=== PATIENT | male | born 1945 | race Caucasian/White ===

== ENCOUNTER → 2023-07-20 08:02 | Outpatient (REF) | payer MEDICARE, BC, SELFPAY ==
[2023-07-20 09:42] LABS: % Basophils 0.6 % (0-2); % Eosinophils 2.3 % (0-6); % Immature Granulocytes 0.3 % (0-0.5); % Lymphocytes 22.1 % (20.5-51.1); % Monocytes 9.8 % (1.7-9.3); % Neutrophils 64.9 % (42.2-75.2); Absolute Eosinophils 0.2 10^3/uL (0-0.7); Absolute Lymphocytes 1.6 10^3/uL (1.2-3.4); Absolute Monocytes 0.7 10^3/uL (0.1-0.6); Absolute Neutrophils 4.6 10^3/uL (1.4-6.5); Hematocrit 33.7 % (39.0-52.0); Hemoglobin 11.5 g/dL (13.0-18.0); Mean Corp Hgb Conc. 34.1 g/dL (33.0-37.0); Mean Corpuscular Hgb 32.5 pg (27.0-31.0); Mean Corpuscular Volume 95.2 fL (80.0-94.0); Mean Platelet Volume 10.6 fL (7.4-10.4); Nucleated Red Blood Cells % 0 % (-); Platelet Count 290 10^3/uL (130-400); Red Blood Cell Count 3.54 10^6/uL (4.70-6.10); Red Cell Dist. Width 14.6 % (11.5-14.5); White Blood Cell Count 7.1 10^3/uL (4.8-10.8)
[2023-07-20 10:10] LABS: Microalbumin, Random Urine 1.4 mg/dl (0.6-1.7)
[2023-07-20 10:17] LABS: ALT (SGPT) 16 U/L (0-50); AST (SGOT) 19 U/L (17-59); Albumin 4.1 g/dl (3.5-5.0); Alkaline Phosphatase 108 U/L (38-126); Blood Urea Nitrogen 15 mg/dl (9-20); Calcium 9.7 mg/dl (8.4-10.2); Carbon Dioxide 26 mmol/L (22-30); Chloride 105 mmol/L (98-107); Glucose 104 mg/dl (70-99); HDL Cholesterol 38 mg/dl; LDL Cholesterol, Calculated 90 mg/dl; Potassium 4.2 mmol/L (3.5-5.1); Sodium 137 mmol/L (135-145); Total Bilirubin 0.7 mg/dl (0.2-1.3); Total Cholesterol 149 mg/dl (50-199); Total Protein 6.9 g/dl (6.3-8.2); Triglyceride 106 mg/dl (10-149); Very Low Density Lipoprotein 21 mg/dl (0-30); eGFR > 60.00
[2023-07-20 11:33] LABS: TSH 1.32 uIU/ml (0.47-4.68)
[2023-07-20 11:58] LABS: Glycohemoglobin (HgbA1c) 5.8 % (4.0-5.6)
== END ==
LOC: HWLAB 08:02
PROVIDERS: ATTENDING PHYSICIAN Family Medicine; REFERRING PHYSICIAN Internal Medicine Cardiovascular Disease
DX: E11.43 Type 2 diabetes mellitus with diabetic autonomic (poly)neuropathy (principal); E11.9 Type 2 diabetes mellitus without complications; I10 Essential (primary) hypertension
CPT/HCPCS: 36415; 80053; 80061; 82043; 82570; 83036; 84443; 85025

== ENCOUNTER → 2023-07-24 07:48 | Outpatient (REF) | payer MEDICARE, BC, SELFPAY | LOC: SDSPAT 07:48 | PROVIDERS: ATTENDING PHYSICIAN Internal Medicine; FAMILY PHYSICIAN Family Medicine; OTHER PHYSICIAN Internal Medicine Cardiovascular Disease | DX: Z01.818 Encounter for other preprocedural examination (principal); I48.0 Paroxysmal atrial fibrillation; I10 Essential (primary) hypertension; I47.29 Other ventricular tachycardia | CPT/HCPCS: 93005 ==

== ENCOUNTER 2023-07-26 09:08 | Day surgery (SDC) | payer MEDICARE, BC, SELFPAY ==
[2023-07-24 08:20] VITALS: BMI 32.8
[2023-07-26 10:19] LABS: Glucose - Point of Care 100 mg/dl (70-99)
== END 2023-07-26 12:15 | disposition home or self-care (01) ==
LOC: CATH 09:08
PROVIDERS: ATTENDING PHYSICIAN Internal Medicine; FAMILY PHYSICIAN Family Medicine; OTHER PHYSICIAN Internal Medicine Cardiovascular Disease
DX: I08.1 Rheumatic disorders of both mitral and tricuspid valves (principal); I48.91 Unspecified atrial fibrillation; I48.92 Unspecified atrial flutter; I49.5 Sick sinus syndrome; Z95.0 Presence of cardiac pacemaker; I10 Essential (primary) hypertension; E78.5 Hyperlipidemia, unspecified; E11.9 Type 2 diabetes mellitus without complications; G47.33 Obstructive sleep apnea (adult) (pediatric); K21.9 Gastro-esophageal reflux disease without esophagitis; G47.00 Insomnia, unspecified; Z79.01 Long term (current) use of anticoagulants; Z79.84 Long term (current) use of oral hypoglycemic drugs; Z87.891 Personal history of nicotine dependence
CPT/HCPCS: 93312; 93320; 93325; 82962; 92960; 93005

== ENCOUNTER → 2023-12-01 10:16 | Outpatient (REF) | payer MEDICARE, BC, SELFPAY | LOC: HWRAD 10:16 | PROVIDERS: ATTENDING PHYSICIAN Internal Medicine Cardiovascular Disease; FAMILY PHYSICIAN Family Medicine | DX: Z95.0 Presence of cardiac pacemaker (principal) | CPT/HCPCS: 71046 ==

== ENCOUNTER → 2023-12-06 11:00 | Outpatient (REF) | payer MEDICARE, BC, SELFPAY | LOC: RAD 11:00 | PROVIDERS: ATTENDING PHYSICIAN Podiatrist; FAMILY PHYSICIAN Family Medicine | DX: E11.59 Type 2 diabetes mellitus with other circulatory complications (principal); I73.9 Peripheral vascular disease, unspecified | CPT/HCPCS: 93922; 93925 ==

== ENCOUNTER → 2024-06-13 13:30 | Outpatient (REF) | payer OTHER, SELFPAY | LOC: MRI 13:30 | PROVIDERS: ATTENDING PHYSICIAN Physician Assistant Surgical; FAMILY PHYSICIAN Family Medicine | DX: M54.16 Radiculopathy, lumbar region (principal); M54.50 Low back pain, unspecified; M47.816 Spondylosis without myelopathy or radiculopathy, lumbar region | CPT/HCPCS: 72148; 76014; 76015 ==

== ENCOUNTER → 2024-06-20 07:21 | Outpatient (REF) | payer OTHER, SELFPAY ==
[2024-06-20 09:52] LABS: Blood Urea Nitrogen 19 mg/dl (9-20); Carbon Dioxide 26 mmol/L (22-30); Chloride 107 mmol/L (98-107); Glucose 129 mg/dl (70-99); Potassium 4.3 mmol/L (3.5-5.1); Sodium 143 mmol/L (135-145); eGFR > 60.00
[2024-06-20 09:55] LABS: Hematocrit 38.6 % (39.0-52.0); Hemoglobin 13.1 g/dL (13.0-18.0); Mean Corp Hgb Conc. 33.9 g/dL (33.0-37.0); Mean Corpuscular Hgb 32.8 pg (27.0-31.0); Mean Corpuscular Volume 96.7 fL (80.0-94.0); Mean Platelet Volume 11.1 fL (7.4-10.4); Platelet Count 248 10^3/uL (130-400); Red Blood Cell Count 3.99 10^6/uL (4.70-6.10); Red Cell Dist. Width 15.4 % (11.5-14.5)
== END ==
LOC: HWLAB 07:21
PROVIDERS: ATTENDING PHYSICIAN Internal Medicine Cardiovascular Disease; FAMILY PHYSICIAN Family Medicine
DX: I48.19 Other persistent atrial fibrillation (principal)
CPT/HCPCS: 36415; 80048; 85027

== ENCOUNTER 2024-07-01 06:41 | Day surgery (SDC) | payer OTHER, SELFPAY ==
--- NOTE | 2024-06-28 09:56 | HPS.HSE ---
Family Physician
-
Family Physician: NOT KNOW UNKNOWN - PT DOES
Chief Complaint
-
Persistent atrial fibrillation. Atrial flutter.
History of Present Illness
The patient is a 79 year old male presenting today for persistent atrial fibrillation with underlying atrial flutter. He overall feels well and denies any recent symptoms associated with his arrhythmia. He previously underwent an ablation
in March 2020 and multiple LIONEL-guided cardioversions, with the last occurring in July 2023, secondary to his atrial fibrillation. He is on current pharmacological therapy with Sotalol. He has been compliant with Xarelto for oral anticoagulation. In
November 2019, he had a Medtronic dual chamber pacemaker implanted due to symptomatic sick sinus syndrome. His most recent device check revealed that he has been in atrial fibrillation since 06/01/2024. He is interested in pursuing a cardioversion
for further arrhythmia management. He denies any current complaints today such as chest pain, shortness of breath, palpitations, nausea, vomiting, diarrhea, lightheadedness, dizziness, cough, sore throat, or fever.
Medical History
Past Medical History
Past Medical History: Reports Other
Additional Past Medical History:
1. Persistent atrial fibrillation with underlying atrial flutter, status post ablation 03/2020, and multiple LIONEL-guided cardioversions; pharmacological therapy with Sotalol and oral anticoagulation with Xarelto.
2. History of nonsustained ventricular tachycardia.
3. Sick sinus syndrome, status post Medtronic dual chamber pacemaker implant 11/2019.
4. Hypertension.
5. Hyperlipidemia.
6. Nonobstructive coronary artery disease per cardiac cath 08/2019.
7. Mild-moderate mitral regurgitation.
8. Obstructive sleep apnea, compliant with CPAP.
9. Ynd-qepocgb-ifwewcdiz diabetes with neuropathy.
10. Gastroesophageal reflux disease.
11. Hiatal hernia.
12. Colon polyps.
13. Diverticulosis.
14. Anal fissure, status post remote sphincterotomy.
15. Remote hepatitis.
16. Presumed multiple sclerosis.
17. Multilevel degenerative disc disease.
18. Osteoarthritis, status post bilateral total knee arthroplasty.
19. Anemia.
20. Osteopenia.
21. Gout.
22. Insomnia.
23. Obesity, BMI 32.2.
24. Remote history of tobacco abuse.
Past Surgical History: Reports Other
Additional Past Surgical History:
1. Atrial fibrillation ablation.
2. Multiple LIONEL-guided cardioversions.
3. Medtronic dual chamber pacemaker implant.
4. Cardiac catheterization.
5. Bilateral total knee arthroplasty.
6. Bilateral knee arthroscopy.
7. Bilateral rotator cuff repair.
8. Bilateral bunionectomy.
9. Sphincterotomy.
10. Oral surgery.
11. Bilateral cataract extraction.
12. Colonoscopy x3.
13. Endoscopy x3.
Social History
Tobacco: Former Smoker (He is a former up to 3 pack per day cigarette smoker who quit tobacco altogether in 1981. )
Alcohol: Other (Social use reported. )
Personal:
Living: Other (He lives with his spouse in a ranch style home. )
Family History
Family History: Not pertinent
Allergies / Home Medications
Allergy/Medication List:
Home medications:
1. Allopurinol 300 mg p.o. daily.
2. Losartan 100 mg p.o. daily.
3. Melatonin 10 mg p.o. at bedtime as needed.
4. Metformin 1000 mg p.o. daily.
5. Omeprazole 40 mg p.o. daily.
6. Xarelto 20 mg p.o. at bedtime.
7. Sotalol 80 mg p.o. every 12 hours.
8. Cholecalciferol 50 mcg p.o. daily.
9. Desloratadine 5 mg p.o. daily.
10. Zetia 10 mg p.o. daily.
11. Multivitamin 1 tablet p.o. daily.
12. Lovaza 2 capsules p.o. daily.
13. Pregabalin 75 mg p.o. daily.
14. PreserVision 1 capsule p.o. twice a day.
15. Furosemide 20 mg p.o. daily as needed.
18. Metamucil 1 packet p.o. daily as needed.
Allergies: LEOLA inhibitors. Cephalosporins. Penicillin. Statins. Environmental.
Review of Systems
-
A 12 point ROS was completed and negative except as noted: Yes
Physical Exam
Vital Signs
Blood pressure 139/81. Heart rate 73. Respirations 18. Pulse ox 100% on room air.
Height 5 feet, 10.5 inches. Weight 103.3 kg. BMI 32.2.
Physical Exam
General: Well Developed, Well Nourished and No Apparent Distress
HEENT: NormoCephalic, Moist mucous membranes, Atraumatic and PERRLA
Respiratory: Clear
Cardiac: Irregular Rhythm and Other (Pacemaker site intact. )
GI: Soft, Non Tender and Non Distended
Musculoskeletal: Normal Gait & Station and Other (Trace bilateral sock-line edema noted. )
Skin: Warm and Dry
Neuro: AO x 3 and Nonfocal/grossly intact
Laboratory Results
-
EKG 06/28/2024: Ventricular paced rhythm.
Transesophageal echocardiogram 07/26/2023: Normal biventricular size and systolic function without regional wall motion abnormality. Estimated LVEF 55-60%. Mild to moderate mitral regurgitation. No thrombus detected in the left atrial appendage.
Impression/Plan
-
IMPRESSION/PLAN:
1. Persistent atrial fibrillation and atrial flutter: The patient is in need of a cardioversion with Dr. Eder Syed on 07/01/2024. The benefits and risks of the procedure have been explained to the patient. The patient understands these risks
and wishes to proceed. He is aware to hold his Metformin and Furosemide the morning of his procedure. He will continue his Xarelto pre-operatively.
[2024-06-28 10:56] VITALS: BMI 32.2
[2024-07-01 07:46] LABS: Glucose - Point of Care 126 mg/dl (70-99)
== END 2024-07-01 09:22 | disposition home or self-care (01) ==
LOC: CATH 06:41
PROVIDERS: ATTENDING PHYSICIAN Student in an Organized Health Care Education/Training Program; FAMILY PHYSICIAN Family Medicine; OTHER PHYSICIAN Internal Medicine Cardiovascular Disease
DX: I48.19 Other persistent atrial fibrillation (principal); I48.92 Unspecified atrial flutter; I47.20 Ventricular tachycardia, unspecified; I49.5 Sick sinus syndrome; I10 Essential (primary) hypertension; E78.5 Hyperlipidemia, unspecified; I25.10 Atherosclerotic heart disease of native coronary artery without angina pectoris; I34.0 Nonrheumatic mitral (valve) insufficiency; G47.33 Obstructive sleep apnea (adult) (pediatric); E11.9 Type 2 diabetes mellitus without complications; K21.9 Gastro-esophageal reflux disease without esophagitis; Z87.891 Personal history of nicotine dependence; M10.9 Gout, unspecified; M19.90 Unspecified osteoarthritis, unspecified site; Z79.01 Long term (current) use of anticoagulants; Z79.84 Long term (current) use of oral hypoglycemic drugs
CPT/HCPCS: 82962; 92960; 93005

== ENCOUNTER → 2024-11-20 07:34 | Outpatient (REF) | payer OTHER, SELFPAY ==
[2024-11-20 09:38] LABS: Hematocrit 38.4 % (39.0-52.0); Hemoglobin 13.2 g/dL (13.0-18.0); Mean Corp Hgb Conc. 34.4 g/dL (33.0-37.0); Mean Corpuscular Volume 96.0 fL (80.0-94.0); Nucleated Red Blood Cells % 0 % (-); Platelet Count 234 10^3/uL (130-400); Red Cell Dist. Width 15.5 % (11.5-14.5)
[2024-11-20 10:30] LABS: ALT (SGPT) 21 U/L (0-50); AST (SGOT) 22 U/L (17-59); Albumin 4.3 g/dl (3.5-5.0); Alkaline Phosphatase 101 U/L (38-126); Blood Urea Nitrogen 18 mg/dl (9-20); Calcium 9.7 mg/dl (8.4-10.2); Carbon Dioxide 24 mmol/L (22-30); Chloride 109 mmol/L (98-107); Glucose 122 mg/dl (70-99); HDL Cholesterol 57 mg/dl; LDL Cholesterol, Calculated 87 mg/dl; Potassium 4.3 mmol/L (3.5-5.1); Sodium 139 mmol/L (135-145); Total Protein 7.1 g/dl (6.3-8.2); Very Low Density Lipoprotein 23 mg/dl (0-30); eGFR > 60.00
[2024-11-20 10:31] LABS: Microalb - Urine Creatinine 85.100 mg/dl
[2024-11-20 10:34] LABS: Microalbumin, Random Urine 3.2 mg/dl (0.6-1.7)
[2024-11-20 10:37] LABS: Uric Acid 3.7 mg/dl (3.5-8.5)
[2024-11-20 11:16] LABS: Glycohemoglobin (HgbA1c) 5.6 % (4.0-5.6)
== END ==
LOC: HWLAB 07:34
PROVIDERS: ATTENDING PHYSICIAN Family Medicine
DX: E11.43 Type 2 diabetes mellitus with diabetic autonomic (poly)neuropathy (principal); I48.0 Paroxysmal atrial fibrillation; I49.5 Sick sinus syndrome; I10 Essential (primary) hypertension
CPT/HCPCS: 36415; 80053; 80061; 82043; 82570; 83036; 84443; 84550; 85025

== ENCOUNTER → 2024-11-26 07:09 | Outpatient (REF) | payer OTHER, SELFPAY | LOC: HWRCS 07:09 | PROVIDERS: ATTENDING PHYSICIAN Internal Medicine Cardiovascular Disease; FAMILY PHYSICIAN Family Medicine | DX: I48.19 Other persistent atrial fibrillation (principal) | CPT/HCPCS: 93306 ==